=== PATIENT | female | born 1965 | race Caucasian/White ===

== ENCOUNTER 2017-05-19 00:06 | Emergency (ER) | payer SELFPAY ==
[2017-05-19] MEDS: LIDOCAINE 1% (MDV) 20 ML INJ SC (06:52)
[2017-05-19] MEDS: DIPHTH/TET/ACEL PERTUSS (ADULT) 0.5 ML VIAL IM* (06:57)
== END 2017-05-19 09:15 | disposition home or self-care (01) ==
LOC: FTE 00:06
DX: S01.01XA Laceration without foreign body of scalp, initial encounter (principal); W01.190A Fall on same level from slipping, tripping and stumbling with subsequent striking against furniture, initial encounter; Y92.9 Unspecified place or not applicable
CPT/HCPCS: 12002; 70450; 90471; 90715; 99284-25

== ENCOUNTER 2017-05-21 12:55 | Emergency (ER) | payer MEDICAID | END 2017-05-21 14:31 | disposition home or self-care (01) | LOC: E/R 14:31 → FTE 12:55 | DX: Z48.01 Encounter for change or removal of surgical wound dressing (principal) | CPT/HCPCS: 99281; Z7502 ==

== ENCOUNTER 2017-05-23 11:50 | Emergency (ER) | payer MEDICAID | END 2017-05-23 15:35 | disposition home or self-care (01) | LOC: FTE 11:50 | DX: Z48.02 Encounter for removal of sutures (principal) | CPT/HCPCS: 99281; Z7502 ==